=== PATIENT | female | born 1965 | race Caucasian/White ===

== ENCOUNTER 2017-05-27 16:07 | Emergency (ER) | payer MEDICAID ==
[~2017-05-27] VITALS: Ht 162.6 cm; Wt 63.5 kg
--- NOTE | 2017-05-27 16:07 | NUR ---
BIB SELF, C/O NECK PAIN, MUSCLE SPASM, X1 DAY, NAD NOTED, VSS, A/0 X4, AMBULATORY, STEADY GAIT. AT BEDSIDE FOR EVAL
[2017-05-27] MEDS ORDERED: KETOROLAC TROMETHAMINE INJ 60 MG/2 ML VIAL IM ONE ×2 (18:00→18:02)
[2017-05-27 18:16] VITALS: BP 126/87
--- NOTE | 2017-05-27 18:20 | NUR ---
Patient discharged to home in stable condition. Written and verbal after care instructions given. Patient verbalizes understanding of instruction. Prescriptions given.
== END 2017-05-27 18:22 | disposition home or self-care (01) ==
LOC: ER 16:09
DX: M62.838 Other muscle spasm (principal); K46.9 Unspecified abdominal hernia without obstruction or gangrene
CPT/HCPCS: A4606; J1885; Z7610

== ENCOUNTER 2017-07-31 14:46 | Emergency (ER) | payer MEDICAID ==
[~2017-07-31] VITALS: Ht 157.5 cm; Wt 49.9 kg
[2017-07-31 14:46] VITALS: BP 120/77
[2017-07-31] MEDS ORDERED: ACETAMINOPHEN ES 500 MG TABLET ONE (15:59)
[2017-07-31] MEDS ORDERED: ACETAMINOPHEN ES 500 MG TABLET PO ONE (16:00)
== END 2017-07-31 16:03 | disposition home or self-care (01) ==
LOC: ER 14:52
DX: S16.1XXA Strain of muscle, fascia and tendon at neck level, initial encounter (principal); X50.9XXA Other and unspecified overexertion or strenuous movements or postures, initial encounter; Y93.89 Activity, other specified; Y92.89 Other specified places as the place of occurrence of the external cause; Y99.8 Other external cause status
CPT/HCPCS: 99283; A4606; Z7610

== ENCOUNTER 2017-08-03 14:25 | Emergency (ER) | payer MEDICAID ==
[~2017-08-03] VITALS: Ht 157.5 cm; Wt 49.9 kg
[2017-08-03 14:28] VITALS: BP 127/92
== END 2017-08-03 15:04 | disposition home or self-care (01) ==
LOC: ER 14:27
DX: J11.1 Influenza due to unidentified influenza virus with other respiratory manifestations (principal); I10 Essential (primary) hypertension
CPT/HCPCS: 99283; A4606; Z7610

== ENCOUNTER 2017-08-04 13:49 | Emergency (ER) | payer MEDICAID ==
[~2017-08-04] VITALS: Ht 157.5 cm; Wt 59.0 kg
[2017-08-04 13:57] VITALS: BP 120/75
[2017-08-04] MEDS ORDERED: ONDANSETRON 4 MG TAB.RAPDIS ONE (14:15)
[2017-08-04] MEDS ORDERED: ONDANSETRON 4 MG TAB.RAPDIS SL ONE (14:30)
== END 2017-08-04 14:22 | disposition home or self-care (01) ==
LOC: ER 13:51
DX: R11.0 Nausea (principal); I10 Essential (primary) hypertension; T37.5X5A Adverse effect of antiviral drugs, initial encounter; Y92.89 Other specified places as the place of occurrence of the external cause
CPT/HCPCS: 99283; A4606; Q0162; Z7610

== ENCOUNTER 2017-08-28 16:39 | Emergency (ER) | payer MEDICAID ==
[~2017-08-28] VITALS: Ht 165.1 cm; Wt 61.2 kg
[2017-08-28 17:54] VITALS: BP 134/77
== END 2017-08-28 17:58 | disposition home or self-care (01) ==
LOC: ER 16:42
DX: L29.9 Pruritus, unspecified (principal); I10 Essential (primary) hypertension
CPT/HCPCS: 99283; A4606; Z7610

== ENCOUNTER 2017-09-03 17:21 | Emergency (ER) | payer MEDICAID ==
[~2017-09-03] VITALS: Ht 157.5 cm; Wt 54.4 kg
[2017-09-03 17:56] VITALS: BP 131/91
== END 2017-09-03 18:20 | disposition home or self-care (01) ==
LOC: ER 17:24
DX: L85.3 Xerosis cutis (principal); I10 Essential (primary) hypertension
CPT/HCPCS: 99281; A4606; Z7610; Z7502

== ENCOUNTER 2017-09-16 16:18 | Emergency (ER) | payer MEDICAID ==
[~2017-09-16] VITALS: Ht 162.6 cm; Wt 49.9 kg
[2017-09-16 19:20] VITALS: BP 132/94
== END 2017-09-16 19:48 | disposition home or self-care (01) ==
LOC: ER 16:22
DX: S16.1XXA Strain of muscle, fascia and tendon at neck level, initial encounter (principal); I10 Essential (primary) hypertension; X58.XXXA Exposure to other specified factors, initial encounter; Y93.89 Activity, other specified; Y92.89 Other specified places as the place of occurrence of the external cause; Y99.8 Other external cause status
CPT/HCPCS: 99283; A4606; Z7610

== ENCOUNTER 2017-11-03 18:32 | Emergency (ER) | payer MEDICAID ==
[~2017-11-03] VITALS: Ht 157.5 cm; Wt 46.3 kg
--- NOTE | 2017-11-03 18:58 | NUR ---
Received pt at this time. a/ox4, pt is complaining of dizziness since 1000am this morning. ambulatory in a steady gait. vss nad rr even and unlabored. skin is warm and non diaphroetic. pending er md evaluation
--- NOTE | 2017-11-03 19:09 | NUR ---
report given to
[2017-11-03] MEDS ORDERED: MECLIZINE HCL 25 MG TABLET PO ONE (19:30)
--- NOTE | 2017-11-03 19:30 | NUR ---
PT HAS IV, BLOOD WAS DRAWN AND PT REC'D MEDICATION ORDERED.
[2017-11-03] MEDS ORDERED: MECLIZINE HCL 25 MG TABLET ONE (19:35)
[2017-11-03 19:42] LABS: HEMATOCRIT 27 % (33-45); HEMOGLOBIN 9.2 g/dL (11.5-14.8); MEAN CORPUSCULAR HEMOGLOBIN 23 PG (26.0-33.0); MEAN CORPUSCULAR HGB CONC 34 g/dl (31.0-36.0); MEAN CORPUSCULAR VOLUME 68 fL (82-100); PLATELET COUNT (AUTO) 309 /CMM (150-450); RED BLOOD CELL COUNT(AUTO) 4.04 MIL/uL (4.0-5.2); WHITE BLOOD COUNT (AUTO) 7.1 K/uL (4.3-11.0)
[2017-11-03 19:48] LABS: CALCIUM, SERUM 8.4 mg/dL (8.5-10.1); CREATININE 0.7 mg/dL (0.6-1.3); POTASSIUM 4.2 mmol/L (3.5-5.1)
[2017-11-03 19:53] LABS: INR 0.92 (0.85-1.15)
[2017-11-03 20:20] VITALS: BP 111/63
--- NOTE | 2017-11-03 21:25 | NUR ---
PT ALREADY DISCHARGED BY NURSE FELISA AND LEFT ROOM.
[2017-11-03 21:32] LABS: BAND % (MANUAL) 2 % (0.0-5.0); EOSINOPHILS % (MANUAL) 4 % (0-4); LYMPHOCYTES % (MANUAL) 34 % (16-48); MONOCYTES % (MANUAL) 7 % (0-11.0); NEUTROPHILS % (MANUAL) 53 (42-76)
== END 2017-11-03 21:28 | disposition home or self-care (01) ==
LOC: ER 18:35
DX: R42 Dizziness and giddiness (principal); I10 Essential (primary) hypertension
CPT/HCPCS: 36415; 70450; 80048; 85025; 85730; 93005; 99285; A4606; J8597; Z7610

== ENCOUNTER 2018-01-18 15:11 | Emergency (ER) | payer MEDICAID ==
[~2018-01-18] VITALS: Ht 157.5 cm; Wt 61.2 kg
[2018-01-18 15:15] VITALS: BP 123/79
== END 2018-01-18 15:43 | disposition home or self-care (01) ==
LOC: ER 15:12
DX: M54.12 Radiculopathy, cervical region (principal); I10 Essential (primary) hypertension; Z60.2 Problems related to living alone; Z98.890 Other specified postprocedural states
CPT/HCPCS: A4606; Z7610

== ENCOUNTER 2018-03-10 12:29 | Emergency (ER) | payer MEDICAID ==
[~2018-03-10] VITALS: Ht 149.9 cm; Wt 59.0 kg
[2018-03-10 12:29] VITALS: BP 124/82
[2018-03-10] MEDS ORDERED: IBUPROFEN 600 MG TABLET PO ONE ×2 (13:00→13:05)
== END 2018-03-10 13:22 | disposition home or self-care (01) ==
LOC: ER 12:31
DX: M62.830 Muscle spasm of back (principal); I10 Essential (primary) hypertension; Z60.2 Problems related to living alone; Z98.890 Other specified postprocedural states
CPT/HCPCS: 99283; A4606; Z7610